=== PATIENT | male | born 1990 | race Caucasian/White ===

== ENCOUNTER 2022-09-29 01:46 | Emergency (ER) | payer BC ==
[2022-09-29] MEDS ORDERED: predniSONE 10 MG Tab PO ONE (02:23)
[2022-09-29] MEDS ORDERED: Cetirizine 10 MG Tab PO ONE (02:23)
[2022-09-29] MEDS ORDERED: diphenhydrAMINE 50 MG Cap PO ONE (02:23)
== END 2022-09-29 04:07 | disposition home or self-care (01) ==
LOC: MW.ED 01:46
DX: L50.9 Urticaria, unspecified (principal); F17.210 Nicotine dependence, cigarettes, uncomplicated
CPT/HCPCS: 99282; A9270

== ENCOUNTER 2022-11-20 07:38 | Emergency (ER) | payer OTHER, BC ==
[2022-11-20] MEDS ORDERED: Diphtheria,Pertussis(Acell),Tetanus Vaccine 0.5 ML Syringe IM ONE (07:58)
[2022-11-20] MEDS ORDERED: Lidocaine/Epineph/Tetracaine 3 ML Syringe TOP ONE (07:58)
[2022-11-20] MEDS ORDERED: Cephalexin 500 MG Cap PO ONE (09:04)
[2022-11-20] MEDS ORDERED: Bacitracin Oint 28.35 GM Tube TOP ONE (09:08)
[2022-11-20] MEDS ORDERED: Bacitracin Oint 1 GM U/D Packet TOP ONE (09:10)
[2022-11-20] MEDS ORDERED: Bacitracin Oint 28.35 GM Tube TOP SCH (14:00)
== END 2022-11-20 09:36 | disposition home or self-care (01) ==
LOC: MW.ED 07:38
DX: S61.216A Laceration without foreign body of right little finger without damage to nail, initial encounter (principal); Z23 Encounter for immunization; W23.0XXA Caught, crushed, jammed, or pinched between moving objects, initial encounter
CPT/HCPCS: 12002; 90471; 90715; 99283; A9270